=== PATIENT | male | born 1970 | race Caucasian/White ===

== ENCOUNTER 2024-03-24 14:50 | Outpatient (CLI) | payer MEDICAID ==
[~2024-03-24 14:50] MED LIST: GABA-341 PO; NORCO10T PO; PER5325T PO
[2024-03-24 16:12] LABS: BASOPHILS % (AUTO) 0.7 % (0-1); EOSINOPHILS # (AUTO) 0.1 X10'3 (0-0.9); EOSINOPHILS % (AUTO) 2.4 % (0-6); LYMPHOCYTES # (AUTO) 1.8 X10'3 (1.1-4.8); LYMPHOCYTES % (AUTO) 28.7 % (21-51); MEAN CORPUSCULAR HEMOGLOBIN 30.9 PG (27.0-31.0); MEAN CORPUSCULAR VOLUME 93.6 FL (78-98); MEAN PLATELET VOLUME 7.3 FL (7.4-10.4); MONOCYTES # (AUTO) 0.5 X10'3 (0-0.9); MONOCYTES % (AUTO) 8.3 % (2-12); NEUTROPHILS # (AUTO) 3.7 X10'3 (1.8-7.7); NEUTROPHILS % (AUTO) 59.9 % (42-75); PRE OP HEMATOCRIT 44.6 % (42.0-52.0); PRE OP HEMOGLOBIN 14.7 g/dL (14.0-17.9); PRE OP PLATELET COUNT 285 X10'3 (140-440); PRE OP WHITE BLOOD COUNT 6.2 10'3 (4.8-10.8); RED BLOOD COUNT 4.76 X10'6 (4.70-6.10); RED CELL DISTRIBUTION WIDTH 14.2 % (11.5-14.5)
[2024-03-24 16:20] LABS: ALBUMIN/GLOBULIN RATIO 1.1 (1.1-1.5); ALKALINE PHOSPHATASE 63 IU/L (46-116); BLOOD UREA NITROGEN 16 MG/DL (7-18); BUN/CREATININE RATIO 13.3 (10.0-20.0); CALCIUM 9.6 MG/DL (8.5-10.1); CHLORIDE 108 MMOL/L (99-107); PRE OP ALT 37 U/L (30-65); PRE OP ANION GAP 9 (8-16); PRE OP AST 18 U/L (10-37); PRE OP BILIRUB, TOTAL 0.3 MG/DL (0.0-1.0); PRE OP GLUCOSE 83 MG/DL (70-104); PRE OP SODIUM 145 MMOL/L (135-145); TOTAL CARBON DIOXIDE 28.5 MMOL/L (24-32); TOTAL PROTEIN 7.7 G/DL (6.4-8.2); eGFR 63 ML/MIN
[2024-03-24] MEDS ORDERED: CHOL20004 PO (17:21)
[2024-03-24] MEDS ORDERED: GABA300C PO ×3 (17:21)
[2024-03-24] MEDS ORDERED: MELO-102 PO (17:21)
[2024-03-24] MEDS ORDERED: AMIT25TA9 PO (17:21)
[2024-03-24] MEDS ORDERED: ATOR10TA70 PO (17:21)
== END 2024-03-24 23:59 | disposition home or self-care (01) ==
LOC: LAB 14:50 → EDSTATUS 03-31 11:45
PROVIDERS: ATTEND Orthopaedic Surgery
DX: Z01.812 Encounter for preprocedural laboratory examination (principal); Z96.611 Presence of right artificial shoulder joint
CPT/HCPCS: 36415; 80053; 85025; 87081